=== PATIENT | male | born 1940 | race Caucasian/White ===

== ENCOUNTER 2021-08-02 11:34 | Emergency (ER) | payer MEDICARE, SELFPAY ==
[2021-08-02] VITALS (15 sets, daily range): BP systolic 153–186; BP diastolic 79–100; PULSE 57–78; RESP 12–30; TEMP 36.4; O2SAT 93–100; BMI 23.7
--- NOTE | 2021-08-02 12:02 | DI.RAD.S_ITS ---
PROCEDURE: XR CHEST 1V INDICATIONS: chest pain TECHNIQUE: One view of the chest was acquired. COMPARISON: None. FINDINGS: Surgical changes and devices: None. Lungs and pleura: An incomplete inspiratory result is noted, causing a crowded appearance to the lung markings. No focal infiltrates are seen. No pneumothorax or significant pleural effusions are seen. Mediastinum: The cardiac contours are within normal limits. The aorta demonstrates calcification and tortuosity. Bones and chest wall: Age-appropriate bony degenerative changes are seen. No suspicious bony lesions. Overlying soft tissues appear unremarkable. IMPRESSION: Portable chest within normal limits. Dictated by: Saul Wood M.D. on 08/02/2021 at 11:55 Approved by: Saul Wood M.D. on 08/02/2021 at 11:55
[2021-08-02 12:09] LABS: Add Manual Diff / Slide Review NO; Basophils Absolute Auto 0 /uL (0-100); Basophils Percent Auto 0.4 % (0-2); Eosinophils Absolute Auto 200 /uL (0-450); Eosinophils Percent Auto 2.2 % (2-4); Hematocrit 41.6 % (41-53); Hemoglobin 14.2 g/dL (13.5-17.5); Lymphocytes Absolute Auto 1600 /uL (1100-4500); Lymphocytes Percent Auto 20.9 % (25-40); Mean Corpuscular HGB Conc 34.2 % (30-36); Mean Corpuscular Hemoglobin 32.1 PG (26-34); Mean Corpuscular Volume 93.8 fL (80-100); Monocytes Absolute Auto 600 /uL (0-900); Monocytes Percent Auto 7.8 % (3-14); Neutrophils Absolute Auto 5300 /uL (1500-7000); Neutrophils Percent Auto 68.7 % (50-75); Platelet Count 236 X10^3/uL (150-400); Red Blood Cell Count 4.44 X10^6/uL (4.5-5.9); Red Cell Distribution Width 13.2 % (11.6-14.8); White Blood Cell Count 7.7 X10^3/uL (4.5-11.0)
[2021-08-02 12:14] LABS: Alanine Aminotransferase 17 IU/L (<50); Albumin 4.3 g/dL (3.5-5.0); Albumin Globulin Ratio 1.5 (1.0-2.8); Alkaline Phosphatase 55 U/L (38-126); Aspartate Aminotransferase 24 IU/L (17-59); BUN Creatinine Ratio 13.3 (6-22); Bilirubin Total 0.7 mg/dL (0.2-1.3); Blood Urea Nitrogen 12 mg/dL (9-20); Calcium 9.1 mg/dL (8.4-10.2); Carbon Dioxide 32 mmol/L (22-32); Chloride 102 mmol/L (98-107); Creatine Kinase 77 U/L (55-170); Estimated Glomerular Filt Rate > 60 mL/min (>60); Globulin 2.9 g/dL (1.7-4.1); Glucose 152 mg/dL (80-110); HEMOLYSIS < 15 (0-50); Lipase 92 U/L (23-300); Potassium 4.2 mmol/L (3.4-5.1); Sodium 137 mmol/L (137-145); Total Protein 7.2 g/dL (6.3-8.2)
[2021-08-02 12:15] LABS: INR 1.6 (0.9-1.3); Prothrombin Time 18.7 SECONDS (10.1-12.7)
[2021-08-02 12:25] LABS: Troponin I < 0.012 ng/mL (0.01-0.034)
--- NOTE | 2021-08-02 13:14 | ED.DIZZY ---
HPI - Dizziness General Chief Complaint: Dizziness Stated Complaint: Heart problems Time Seen by Provider: 08/02/21 12:35 Source: patient Mode of arrival: Family Vehicle Limitations: no limitations History of Present Illness HPI Narrative: This is an 80-year-old male with known atrial fibrillation who is on Eliquis, dyslipidemia, coronary artery disease and dementia. Patient is on Eliquis, rosuvastatin and donepezil. No prior surgeries. No cardiac stents it no allergies. No tobacco, 1 alcoholic drink last nightly, no illicit. He patient lives in [place], splits his time between [facility], [place] and [place]. Patient has not had any headaches, cold cough or congestion, his vertigo like symptoms but at nighttime only. Patient states it feels like the room is spinning or moving he feels balance. He states usually when he gets up to go to the bathroom at night time. He does not really appreciated during the daytime. He has been able to ambulate without issue but feels like he needs to grab onto something at night. It isn't occurring before bedtime only once he has gone to sleep and then gets up. He denies any chest pain or shortness of breath, no nausea or vomiting, no numbness, tingling or weakness of extremities. No issues with urination or bowel movements. He has had symptoms for 3 or 4 days. He had his 2nd COVID booster 2 days ago but symptoms started before this. He has not had similar symptoms in the past. He is accompanied by his . Related Data Home Medications Medication Instructions Recorded Confirmed apixaban 5 mg tablet (Eliquis) 5 mg PO BID 08/02/21 08/02/21 donepezil 5 mg tablet 5 mg PO DAILY 08/02/21 08/02/21 rosuvastatin 20 mg tablet 20 mg PO DAILY 08/02/21 08/02/21 Allergies Allergy/AdvReac Type Severity Reaction Status Date / Time No Known Drug Allergies Allergy Verified 08/02/21 11:46 Review of Systems Review of Systems ROS Unobtainable: All systems reviewed & are unremarkable except as noted in HPI and below Patient History Social History Smoking Status: Former smoker Smoking Status: Former smoker alcohol intake frequency: 3 or more drinks per day Substance Use Type: does not use Exam Narrative Exam Narrative: GEN: well nourished, well appearing male, alert and oriented x 3, patient appears to be in mild distress. HEENT: Atraumatic, pupils are equal round reactive to light, extraocular movements are intact, no nystagmus, nares are clear, TMs are clear with no fluid, there is no conjunctival pallor. Throat is clear without any exudates, erythema, tonsillar enlargement or uvular deviation, no facial droop. HEART: Regular rate and rhythm without murmur, clicks, rubs. pulses are equal in upper and lower extremities LUNGS:Lungs clear to auscultation, no wheezes, rales, crackles, chest moves symmetrically ABD:bowel sounds normal, soft, non-tender, no guarding, rebound, rigidity, no masses noted, no hepatosplenomegaly :No CVA tenderness MSCL: Non-tender, no muscle atrophy, muscles strength 5/5 upper and lower extremities, full range of motion, normal gait NEURO:CN 2-12 intact, sensation normal, reflexes 2/4 upper and lower extremities. finger nose finger test normal, heel grullon test normal, normal speech, no dysarthria, no aphasia. SKIN: No rash, erythema or skin changes Initial Vital Signs Initial Vital Signs: Vital Signs Pulse Rate 61 08/02/21 11:40 Pulse Oximetry 93 08/02/21 11:40 Scores NIH Stroke Scale Level of Conciousness: Alert, keenly responsive Ask month/age: Answers both questions correctly. Open/close eyes, close hand: Performs both tasks correctly Best gaze horizontal: Normal Visual porras: No visual loss Facial palsy: Normal symetrical movement Left arm drift: No drift for full 10 sec Right arm drift: No drift for full 10 sec Left leg drift: No drift for full 5 sec Right leg drift: No drift for full 5 sec Limb ataxia: Absent Sensory on face/arms/legs: Normal, no sensory loss Best language: No aphasia, normal Dysarthria: Normal Extinction or inattention: No abnormality Total NIH Stroke scale score: 0 Course Orders Ordered: ED Orders 08/02/21 11:55 Complete Blood Count AUTO DIFF Stat Comprehensive Metabolic Panel Stat Lipase Stat Magnesium Stat Prothrombin Time INR Stat Troponin & CK Cardiac Panel Stat 08/02/21 12:02 XR chest 1V Stat 08/02/21 13:40 CT head/brain wo con Stat Reevaluation(s) Reevaluation #1: Patient continues to state he has been asymptomatic here in the department. Plan for follow-up. Time: 15:59 Vital Signs Vital signs: Vital Signs - 8 hr 08/02/21 11:40 08/02/21 11:41 08/02/21 11:43 Temperature 97.5 F L Pulse Rate 61 72 76 Respiratory Rate 20 17 Blood Pressure 183/100 H 183/100 H Pulse Oximetry 93 100 96 08/02/21 12:00 08/02/21 12:01 08/02/21 12:30 Temperature Pulse Rate 61 70 68 Respiratory Rate 23 19 17 Blood Pressure 153/88 H 156/89 H Pulse Oximetry 98 99 98 08/02/21 13:03 08/02/21 13:30 08/02/21 13:31 Temperature Pulse Rate 78 71 71 Respiratory Rate 30 H 21 25 H Blood Pressure 153/79 H Pulse Oximetry 100 98 99 08/02/21 14:00 08/02/21 14:30 08/02/21 15:00 Temperature Pulse Rate 66 64 57 L Respiratory Rate 16 22 14 Blood Pressure Pulse Oximetry 99 98 98 08/02/21 15:30 08/02/21 15:54 08/02/21 16:00 Temperature Pulse Rate 66 72 67 Respiratory Rate 22 12 21 Blood Pressure 186/88 H 166/86 H Pulse Oximetry 98 99 99 MDM - Dizziness Lab Data Result diagrams: 08/02/21 11:55 08/02/21 11:55 Labs: Lab Results 08/02/21 08/02/21 08/02/21 Range/Units 11:55 11:55 11:55 WBC 7.7 (4.5-11.0) X10^3/uL RBC 4.44 L (4.5-5.9) X10^6/uL Hgb 14.2 (13.5-17.5) g/dL Hct 41.6 (41-53) % MCV 93.8 (80-100) fL MCH 32.1 (26-34) PG MCHC 34.2 (30-36) % RDW 13.2 (11.6-14.8) % Plt Count 236 (150-400) X10^3/uL Neut % (Auto) 68.7 (50-75) % Lymph % (Auto) 20.9 L (25-40) % [place] % (Auto) 7.8 (3-14) % Eos % (Auto) 2.2 (2-4) % Baso % (Auto) 0.4 (0-2) % Neut # (Auto) 5300 (1911-8706) /uL Lymph # (Auto) 1600 (4208-6280) /uL [place] # (Auto) 600 (0-900) /uL Eos # (Auto) 200 (0-450) /uL Baso # (Auto) 0 (0-100) /uL PT 18.7 H (10.1-12.7) SECONDS INR 1.6 H (0.9-1.3) Sodium 137 (137-145) mmol/L Potassium 4.2 (3.4-5.1) mmol/L Chloride 102 (98-107) mmol/L Carbon Dioxide 32 (22-32) mmol/L BUN 12 (9-20) mg/dL Creatinine 0.90 (0.66-1.25) mg/dL Estimated GFR > 60 (>60) mL/min BUN/Creatinine Ratio 13.3 (6-22) Glucose 152 H (80-110) mg/dL Calcium 9.1 (8.4-10.2) mg/dL Magnesium 2.0 (1.6-2.3) mg/dL Total Bilirubin 0.7 (0.2-1.3) mg/dL AST 24 (17-59) IU/L ALT 17 (<50) IU/L Alkaline Phosphatase 55 (38-126) U/L Total Creatine Kinase 77 (55-170) U/L CK-MB (CK-2) TNP CK-MB (CK-2) Rel Index TNP Troponin I < 0.012 (0.01-0.034) ng/mL Total Protein 7.2 (6.3-8.2) g/dL Albumin 4.3 (3.5-5.0) g/dL Globulin 2.9 (1.7-4.1) g/dL Albumin/Globulin Ratio 1.5 (1.0-2.8) Lipase 92 (23-300) U/L Imaging Data Chest x-ray: Radiologist's Impression: [address] [address] XRay Report Signed Patient: Dimas Burger MR#: [id number] : 1940 Acct:[id number] Age/Sex: 80 / M Date of Service: 08/02/21 Loc: ED Accession Number: [id number] ?? Procedure: XR chest 1V Ordering Provider: Keyla Ricks D.O. PROCEDURE:? XR CHEST 1V ? INDICATIONS:? chest pain ? TECHNIQUE:? One view of the chest was acquired.? ? COMPARISON:? None. ? FINDINGS:? ? Surgical changes and devices:? None.? ? Lungs and pleura:? An incomplete inspiratory result is noted, causing a crowded appearance to the lung markings.? No focal infiltrates are seen.? No pneumothorax or significant pleural effusions are seen. ? ? Mediastinum:? The cardiac contours are within normal limits. The aorta demonstrates calcification and tortuosity. ? Bones and chest wall:? Age-appropriate bony degenerative changes are seen.? No suspicious bony lesions.? Overlying soft tissues appear unremarkable.? ? ? IMPRESSION:? ? Portable chest within normal limits. ? ? ? Dictated by: Saul Wood M.D. on 08/02/2021 at 11:55 ? ? Approved by: Saul Wood M.D. on 08/02/2021 at 11:55?? CT scan - head: Radiologist's Impression: [place] [address] CT Scan Report Signed Patient: Dimas Burger MR#: [id number] : 1940 Acct:[id number] Age/Sex: 80 / M Date of Service: 08/02/21 Loc: ED Accession Number: [id number] ?? Procedure: CT head/brain wo con Ordering Provider: Keyla Ricks D.O. PROCEDURE:? CT HEAD/BRAIN WO CON ? INDICATIONS:? vertigo symptoms at night for several days ? TECHNIQUE:? Noncontrast 4.5 mm thick angled axial sections acquired from the foramen magnum to the vertex, with coronal and sagittal reformats.? For radiation dose reduction, the following was used:? automated exposure control, adjustment of mA and/or kV according to patient size.? ? COMPARISON:? [facility], [facility], XR CHEST 1V, 08/02/2021, 12:01.? [facility], MR, MR STROKE PROTOCOL, 10/03/2017, 21:21. ? FINDINGS:? Image quality:? Excellent.? ? CSF spaces:? Basal cisterns are patent.? No extra-axial fluid collections.? The ventricles are symmetric in size and shape.? ? Brain:? No intracranial bleeds or masses.? There is cerebral volume loss for age, with resultant ventricular and sulcal prominence.? There are periventricular and deep white matter chronic small vessel ischemic changes.? Focal volume loss is seen involving the medial posterior left cerebellar hemisphere, which is consistent with the known remote infarct.? There is intracranial internal carotid artery atherosclerosis.? ? Skull and face:? Calvarium and visualized facial bones appear intact, without suspicious lesions.? ? Sinuses:? Visualized sinuses and mastoids are clear.? ? ? IMPRESSION:? 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 ? No acute intracranial process is seen.? ? If there is strong clinical suspicion for an acute stroke, please consider a brain MRI for further evaluation, as it is more sensitive (assuming that there is no contraindication to MRI). ? Dictated by: Saul Wood M.D. on 08/02/2021 at 13:11 ? ? Approved by: Saul Wood M.D. on 08/02/2021 at 13:13?? ECG Data Attestation: I personally reviewed and interpreted this ECG as follows: Interpretation: AFib rate of 80, QRS [address]TC 449[address] No acute ST changes. No priors. MDM Narrative Medical decision making narrative: This is an 80-year-old male who comes in with complaint of dizziness which after further discussion is more vertigo like. Patient has AFib but is rate controlled, he has not been hypotensive. He is on appropriate anticoagulation. He has had vertigo like episodes but only at night time particularly when waking up to use the restroom. Patient has normal neurologic exam with NIH of 0. Labs including CBC, CMP, troponin are negative INR is 1.6, chest x-ray is negative. Head CT was included in shows prior stroke but no acute changes. Patient's EKG shows AFib but no acute changes there is no priors for comparison. I would recommend patient try meclizine, possibly have a Holter monitor or ZIO patch to evaluate for any changes in rhythm follow-up with primary care. Patient is not on any beta-blockers patient is on donepezil which can cause dizziness and bradycardia as well as AV blocks. None appreciated significantly today. Discharge Plan Departure Patient Disposition: Home Clinical Impression: Vertigo Instructions: DI for Vertigo Activity Restrictions/Additional Instructions: Follow-up with your physician. Talk with your physician about having a Holter monitor or ZIO patch. They can order this to have it placed. Donepezil can cause dizziness but if you have been taking this medication for a long time it is a less likely cause. You may take meclizine or Antivert, 1 tablet every 8 hours or prior to bed to see if this improves your symptoms. This is available [id number]. Continue home medications as prescribed. Please return or go to your nearest ER for severe headaches, new speech changes, weakness, difficulty with ambulation, rapidly worsening symptoms or other new or concerning symptoms. Prescriptions: No Action rosuvastatin 20 mg tablet 20 mg PO DAILY 0RF Label Comments: TAKE 1 TABLET BY MOUTH AT NIGHT donepezil 5 mg tablet 5 mg PO DAILY 0RF Label Comments: TAKE 1 TABLET BY MOUTH EVERY NIGHT Eliquis 5 mg tablet 5 mg PO BID 0RF Label Comments: TAKE 1 TABLET BY MOUTH TWICE DAILY
--- NOTE | 2021-08-02 13:40 | DI.CT.S_ITS ---
PROCEDURE: CT HEAD/BRAIN WO CON INDICATIONS: vertigo symptoms at night for several days TECHNIQUE: Noncontrast 4.5 mm thick angled axial sections acquired from the foramen magnum to the vertex, with coronal and sagittal reformats. For radiation dose reduction, the following was used: automated exposure control, adjustment of mA and/or kV according to patient size. COMPARISON: [facility], CR, XR CHEST 1V, 08/02/2021, 12:01. [facility], MR, MR STROKE PROTOCOL, 10/03/2017, 21:21. FINDINGS: Image quality: Excellent. CSF spaces: Basal cisterns are patent. No extra-axial fluid collections. The ventricles are symmetric in size and shape. Brain: No intracranial bleeds or masses. There is cerebral volume loss for age, with resultant ventricular and sulcal prominence. There are periventricular and deep white matter chronic small vessel ischemic changes. Focal volume loss is seen involving the medial posterior left cerebellar hemisphere, which is consistent with the known remote infarct. There is intracranial internal carotid artery atherosclerosis. Skull and face: Calvarium and visualized facial bones appear intact, without suspicious lesions. Sinuses: Visualized sinuses and mastoids are clear. 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 No acute intracranial process is seen. If there is strong clinical suspicion for an acute stroke, please consider a brain MRI for further evaluation, as it is more sensitive (assuming that there is no contraindication to MRI). Dictated by: Saul Wood M.D. on 08/02/2021 at 13:11 Approved by: Saul Wood M.D. on 08/02/2021 at 13:13
== END 2021-08-02 16:13 | disposition home or self-care (01) ==
PROVIDERS: Emergency Provider Emergency Medicine
DX: R42 Dizziness and giddiness (principal); R07.9 Chest pain, unspecified; Z79.01 Long term (current) use of anticoagulants; F03.90 Unspecified dementia, unspecified severity, without behavioral disturbance, psychotic disturbance, mood disturbance, and anxiety; I25.10 Atherosclerotic heart disease of native coronary artery without angina pectoris
CPT/HCPCS: 36415; 70450; 71045; 80053; 82550; 83690; 83735; 84484; 85025; 85610; 93005; 99283; 99284

== ENCOUNTER → 2024-01-17 15:31 | Outpatient (CLI) | payer MEDICARE, SELFPAY ==
--- NOTE | 2024-01-17 15:35 | DI.RAD.S_ITS ---
PROCEDURE: XR HIP W PEL IF DONE RT 2V INDICATIONS: fall 2 wk ago; persistent pain w/ ambulation/sitting TECHNIQUE: 2 views of the hip were acquired. COMPARISON: None. FINDINGS: Bones: Moderate bilateral hip arthrosis. No acute displaced fracture or dislocation. Suspected calcific tendinopathy greater on the right. Lumbosacral degenerative changes also seen. Soft tissues: No suspicious calcifications. Suspected vascular calcifications are present. There are pelvic clips. IMPRESSION: Moderate degenerative changes. Calcific tendinopathy. No acute displaced fracture or pelvic ring disruption identified. If there is high concern for occult injury, consider repeat radiography or cross-sectional imaging. Dictated by: Nate Mitchell M.D. on 01/17/2024 at 16:11 Approved by: Nate Mitchell M.D. on 01/17/2024 at 16:12
== END ==
LOC: RAD 15:34
PROVIDERS: PCP Family Medicine; Referring Provider Student in an Organized Health Care Education/Training Program; Visit Provider Student in an Organized Health Care Education/Training Program
DX: M16.0 Bilateral primary osteoarthritis of hip (principal); M25.559 Pain in unspecified hip; W19.XXXA Unspecified fall, initial encounter; Z97.8 Presence of other specified devices
CPT/HCPCS: 73502

== ENCOUNTER → 2024-07-01 12:16 | Outpatient (CLI) | payer MEDICARE, SELFPAY ==
[2024-07-01 12:51] LABS: Alanine Aminotransferase 26 IU/L (<50); Albumin 4.6 g/dL (3.5-5.0); Albumin Globulin Ratio 1.6 (1.0-2.8); Alkaline Phosphatase 53 U/L (38-126); Aspartate Aminotransferase 34 IU/L (17-59); BUN Creatinine Ratio 20.2 (6-22); Bilirubin Total 1.3 mg/dL (0.2-1.3); Blood Urea Nitrogen 19 mg/dL (9-20); Calcium 9.4 mg/dL (8.4-10.2); Carbon Dioxide 28 mmol/L (22-32); Chloride 104 mmol/L (98-107); Estimated Glomerular Filt Rate > 60 mL/min (>60); Globulin 2.8 g/dL (1.7-4.1); Glucose 98 mg/dL (70-99); HEMOLYSIS < 15 (0-50); Potassium 4.1 mmol/L (3.4-5.1); Sodium 140 mmol/L (137-145); Total Protein 7.4 g/dL (6.3-8.2)
== END ==
PROVIDERS: PCP Family Medicine; Referring Provider Family Medicine; Visit Provider Family Medicine
DX: G30.9 Alzheimer's disease, unspecified (principal); F02.80 Dementia in other diseases classified elsewhere, unspecified severity, without behavioral disturbance, psychotic disturbance, mood disturbance, and anxiety; I48.91 Unspecified atrial fibrillation; E78.5 Hyperlipidemia, unspecified
CPT/HCPCS: 36415; 80053